=== PATIENT | female | born 1955 | race Caucasian/White ===

== ENCOUNTER 2018-10-12 08:00 | Outpatient (RCR) | payer BC, SELFPAY | END 2018-10-12 08:05 | disposition home or self-care (01) | LOC: PT 08:00 | PROVIDERS: Visit Provider Nurse Practitioner Family | DX: M54.5 Low back pain (principal) | CPT/HCPCS: 97010; 97012; 97014; 97110; 97163; G0283 ==

== ENCOUNTER → 2019-06-15 09:20 | Outpatient (CLI) | payer BC, SELFPAY ==
--- NOTE | 2019-06-15 09:22 | MR_ITS ---
PROCEDURE: MR HEAD/BRAIN WO CON CLINICAL INDICATION: BENIGN NEOPLASM OF BRAIN History of non malignant breast tumor, headache with dizziness COMPARISON: No exams were available for comparison TECHNIQUE: Routine multiplanar multi echo sequences are performed without gadolinium enhancement. FINDINGS: This report is delayed waiting on old films/reports for comparison. The old images are apparently not retrievable. An addendum can be added if the old exam is made available for comparison. There is a extradural mass in the posterior fossa on the left along the posterior aspect of the tentorium. This measures up to 1.7 cm AP and 2.6 cm transverse and 2.2 cm cephalad caudad. This is isointense peripherally on T1 and T2 and hypointense centrally on T1 and T2. The hypointensity is more prominent centrally on the T2 weighted images. This also shows restricted diffusion. These findings are consistent with a meningioma. There is some mild mass effect upon the left cerebellar hemisphere anteriorly foot no underlying cerebellar edema. No midline shift. No midline shift intracranial hemorrhage or hydrocephalus. The cerebellopontine angles have an unremarkable appearance as does the midbrain and brainstem. There is a partial empty sella as a normal variant. The optic chiasm, corpus callosum, and craniocervical junction have an unremarkable appearance. No mastoid effusion or sinus air-fluid level. IMPRESSION: 1. 2.6 x 1.7 x 2.2 cm left dural based mass along the petrous bone posteriorly as described above consistent with a meningioma with mild mass effect upon the cerebellar hemisphere on the left but no midline shift or edema. Old studies not available at the time of this reading. 2. Otherwise negative MRI of the brain without contrast. Dictated by: Adan Villegas MD 06/22/2019 05:26 Electronically signed by Adan Villegas MD in [place] 06/22/2019 05:26
== END ==
PROVIDERS: Visit Provider Nurse Practitioner Family
DX: D33.0 Benign neoplasm of brain, supratentorial (principal)
CPT/HCPCS: 70551

== ENCOUNTER → 2019-08-17 07:39 | Outpatient (CLI) | payer BC, SELFPAY ==
--- NOTE | 2019-08-17 07:47 | MM_ITS ---
PROCEDURE: MM DIG SCREENING MAMM BI W/CAD CLINICAL INDICATION: SCREENING The available patient history is somewhat confusing but apparently there is a history of breast cancer bilaterally with previous lumpectomy right breast and previous radiation therapy of the left breast and possibly previous chemotherapy as well. COMPARISON: [facility] DIG MAMM-SCREEN TROY from 10/13/2013 [facility] DIG MAMM-SCREEN TROY from 03/06/2015 MM MOBILE MAMMO DIGITAL SCREEN W CAD TROY from 06/05/2017 poor quality outside films TECHNIQUE: Standard CC and MLO images and 3D Tomosynthesis was obtained. R2 CAD reviewed. FINDINGS: Mild to moderate postlumpectomy change is again seen right breast. Prominent dystrophic calcifications are again seen right breast there are few scattered benign-appearing microcalcifications in each breast as well. There is no new or suspicious lesion in either breast and no suspicious microcalcifications. IMPRESSION: Stable exam with no suspicious lesions seen BI-RAD Category: 2 Benign Finding(s) FOLLOW-UP: 1YR 1 Year Follow-up (A letter has been sent to the patient regarding results of the study.) Dictated by: Dr. Moses Ferrell MD 08/24/2019 18:[address] Moses Ferrell MD in [place] 08/24/2019 18:08
== END ==
PROVIDERS: PCP Physician Assistant; Visit Provider Physician Assistant
DX: Z12.31 Encounter for screening mammogram for malignant neoplasm of breast (principal)
CPT/HCPCS: 77063; 77067

== ENCOUNTER → 2019-08-18 07:53 | Outpatient (CLI) | payer BC, SELFPAY | PROVIDERS: PCP Nurse Practitioner; Visit Provider Specialist | DX: G47.33 Obstructive sleep apnea (adult) (pediatric) (principal) | CPT/HCPCS: G0399 ==

== ENCOUNTER → 2019-11-16 10:51 | Outpatient (CLI) | payer BC, SELFPAY ==
[2019-11-16 11:27] LABS: Basophils # 0.1 K/mm3 (0-0.2); Basophils % 0.8 % (0.1-2.0); Eosinophils # 0.3 K/mm3 (0.0-0.4); Eosinophils % 2.2 % (0.1-12.0); Hematocrit 41.1 % (37.0-47.0); Hemoglobin 13.2 g/dL (12.2-16.2); Lymphocytes # 3.2 K/mm3 (0.7-4.5); Lymphocytes % 24.6 % (10-50); Mean Corpuscular HGB Conc 32.2 g/dL (31.8-35.4); Mean Corpuscular Hemoglobin 28.7 pg (27.0-31.2); Mean Corpuscular Volume 89.2 fl (81-99); Mean Platelet Volume 9.5 fl (7.4-10.4); Monocytes # 0.8 K/mm3 (0.1-1.0); Monocytes % 5.8 % (1.7-9.3); Neutrophils # 8.7 K/mm3 (1.8-7.8); Neutrophils % 66.6 % (37.0-80.0); Platelet Count 417 K/mm3 (142-424); Red Cell Distribution Width 13.6 % (11.5-17.5); White Blood Count 13.1 K/mm3 (4.8-10.8)
[2019-11-16 12:25] LABS: Potassium 3.9 mmoL/L (3.5-5.1)
[2019-11-16 12:26] LABS: Alanine Aminotransferase 19 U/L (12-78); Albumin Level 4.2 g/dl (3.5-5.0); Albumin/Globulin Ratio 1.5 (1.1-1.8); Alkaline Phosphatase 70 U/L (38-126); Anion Gap 9.9 mEq/L (5-15); Aspartate Amino Transferase 20 U/L (14-36); Bilirubin,Total 0.2 mg/dl (0.2-1.3); Blood Urea Nitrogen 14 mg/dl (7-17); Calcium 9.5 mg/dl (8.4-10.2); Carbon Dioxide 28 mmol/L (22.0-30.0); Chloride 102 mmol/L (98-107); Chol/HDL Ratio 2.3 (1-3.5); Cholesterol 99 mg/dl (140-200); Estimated Glomerular Filt Rate 63 ml/min (>60); GFR (African American) 77 ML/MIN (>60); Globulin 2.8 g/dL (1.3-3.2); Glucose 114 mg/dl (74-100); HDL Cholesterol 44 mg/dl (40-60); Sodium 136 mmol/L (136-145); Triglycerides 86 mg/dl (30-150); VLDL Cholesterol 17 mg/dL (0-40)
[2019-11-16 12:37] LABS: Direct LDL Cholesterol 57.84 mg/dL (100-129)
[2019-11-17 16:15] LABS: H. pylori Breath Test Negative (Negative)
== END ==
PROVIDERS: Visit Provider Internal Medicine Adolescent Medicine
DX: I10 Essential (primary) hypertension (principal); K21.0 Gastro-esophageal reflux disease with esophagitis
CPT/HCPCS: 36415; 80053; 80061; 83013; 83036; 85025

== ENCOUNTER → 2019-12-08 06:11 | Outpatient (CLI) | payer BC, SELFPAY ==
--- NOTE | 2019-12-08 06:12 | CA_ITS ---
APPROVED REPORT Exam: Pharmacologic Technologist: Kimberly Salinas, Ht: 5 ft 4 in Wt: 206 lbs BSA: 1.98 m2 Indications: CP/SOA Medical History Medical History: HTN, Hyperlipidemia Medications: Lisinopril,,,,, Aspirin,,,,, Metoprolol,,,,, Buspirone,,,,, Albuterol,,,,, Famotidine,,,,, DicyCLOMINE,,,,, Meclizine,,,,, ToprIMATE,,,,, Fluoxetine,,,,, AtorvaASTATIN,,,,, Aripiprazole,,,,, Cardiac Risk Factors: HTN, Hyperlipidemia, FHX of CAD, Smoking Stress Test Details Test: LEXISCAN Reason for pharmacologic stress test: physical limitation. HR Resting HR: 59 bpm Max Heart Rate (APMHR): 158 bpm Max HR Achieved: 94 bpm Target HR (85% APMHR): 134 bpm % of APMHR: 59 BP Resting BP: 122/46 mmHg Max BP: 154/55 mmHg ECG Clinical Exercise duration: 04:00 min Highest Stage Achieved: Exercise capacity: 1.0 METs Stress ECG Conclusion patient denied any symptoms during peak infusion no arrhythmias noted less than 1.5mm ST depression images to follow Test Summary . Myoview Injected . . . Stop exercise at 04:00 . . . . . Electronically signed by : Joaquin Gee, 12/08/2019 11:19:34
--- NOTE | 2019-12-08 06:12 | NM_ITS ---
APPROVED REPORT Exam: Nuclear Stress Test Indication: chest pain..short of breath..fatigue Patient Location: Outpatient Stress Tech: Kimberly Brad [place] Tech:Elizabeth North CARLA RT(R)(N) Ht: 5 ft 4 in Wt: 206 lbs Bra Size: 40b HR: 57 bpm BP: 122/46 mmHg BSA: 1.98 m2 BMI: 35.3 History: chest pain..short of breath..fatigue Procedure: Patient received a 0.4 mg of intravenous Lexiscan, resting heart rate 57 bpm, resting blood pressure 122/46 mmHg, with Lexiscan maximum heart rate achived was 93 bpm which is Less than 85 % of the maximum predicted heart rate and blood pressure was 154/55 mmHg. With Lexiscan, patient denied any complaint of chest pain. Electrocardiogram Resting electrocardiogram showed sinus rhythm, with Lexiscan there is less than 1.[address] segment depression noted from the baseline EKG. The EKG portion of the Lexiscan Myoview is nondiagnostic. Cardiac Stress and Resting SPECT Images: Cardiac Stress and Resting SPECT images were obtained using technetium 99m Myoview 30.7 mCi stress and 10.89 mCi at rest. Gated SPECT for the analysis of segmental wall motion and calculation of the ejection fraction also done. Cardiac stress and resting SPECT images show a fixed defect involving the apex and anteroseptal wall with normal contractility gated SPECT is likely secondary to soft tissue attenuation, no reversible ischemia seen. Computer derived ejection fraction is over 65% with no regional wall motion abnormality, right ventricle is normal size and contractility. Conclusion: 1. The EKG portion of the Lexiscan Myoview is nondiagnostic. 2. No scintigraphic evidence of reversible ischemia seen, computer derived ejection fraction is over 65% with no regional wall motion abnormality, right ventricle is normal size and contractility. 3. Likely normal Lexiscan Myoview study. Electronically signed by : Joaquin Gee, 12/08/2019 11:52:54
--- NOTE | 2019-12-08 09:12 | HMH.ITSHM ---
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 [] metoprolol atorvastatin dicyclomine lisinopril asa topiramate
== END ==
PROVIDERS: PCP Internal Medicine Adolescent Medicine; Visit Provider Urology
DX: R07.9 Chest pain, unspecified (principal); R06.00 Dyspnea, unspecified; R10.10 Upper abdominal pain, unspecified; F17.200 Nicotine dependence, unspecified, uncomplicated; Z82.49 Family history of ischemic heart disease and other diseases of the circulatory system
CPT/HCPCS: 78452; 93017; A9502; J2785

== ENCOUNTER → 2019-12-28 07:38 | Outpatient (CLI) | payer BC, SELFPAY ==
--- NOTE | 2019-12-28 07:43 | CT_ITS ---
PROCEDURE: CT LUNG SCREENING CLINICAL INDICATION: H/O TOBACCO DEPENDENCE Sixty pack-year smoking history COMPARISON: ABDPELW CT abdomen pelvis w con from 06/17/2018 TECHNIQUE: The exam was performed on a GE Light Speed [address] scanner using 2.90 mGy CTDI. A low dose helical CT CHEST was performed on a multi-detector scanner. All CT scans at the facility use one or more dose reduction, viz: automated exposure control, ma/kV adjustment per patient size (including targeted exams where dose is matched to indication, i.e. head), or iterative reconstruction technique. The LDCT was performed in a facility that meets the criteria for the screening program. Data regarding this exam was submitted to ACR which is an approved registry. The order for this exam indicates that it came as a result of a lung cancer screening counseling shard decision-making visit that included all the elements required of such a visit including smoking cessation. The radiologist interpreting this exam meets the CMS criteria for the LDCT lung cancer screening program. The exam is reported using the Lung-RADS classification scale and reported to the ACR registry. NOTE: This study was performed for the specific purposes of lung cancer screening and is not an alternative to diagnostic chest CT. RADIATION DOSE: CTDI vol(CT dose Index-volume) = 2.90mG DLP (Dose Length Product) = 100.55 mGcm FINDINGS: Changes of COPD with scattered areas of scarring. There are numerous subsolid, solid, and ground-glass opacities. The larger of the sub solid nodules in the superior segment right lower lobe at 12 mm image 41, 8 mm sub solid nodule right upper lobe anteriorly image 17 solid 6 mm nodule right upper lobe image 24. 8 mm solid appearing nodule left lower lobe image 39. 4 mm noncalcified nodule in the right middle lobe. There are other smaller nodules as well. Atelectatic or fibrotic changes in the lingula. Pleural calcification noted in the left lower lung zone anteriorly. Calcified nodule right upper lobe. OTHER FINDINGS: Coronary artery calcifications there is calcification in parenchymal distortion in both breasts. IMPRESSION: Lung rads category 4 suspicious. Numerous noncalcified pulmonary nodular opacities and ground-glass densities. These could be related to infection/inflammation or neoplasm. Metastatic disease is a consideration in this patient with history of breast cancer. Suggest 4-[address] follow-up without and with contrast Dictated by: Adan Villegas MD 01/14/2020 08:22 Electronically signed by Adan Villegas MD in [place] 01/14/2020 08:22
== END ==
PROVIDERS: PCP Internal Medicine Adolescent Medicine; Visit Provider Internal Medicine Adolescent Medicine
DX: Z87.891 Personal history of nicotine dependence (principal); Z12.2 Encounter for screening for malignant neoplasm of respiratory organs

== ENCOUNTER → 2020-01-30 13:23 | Outpatient (CLI) | payer BC, SELFPAY ==
[2020-01-30 14:40] LABS: Blood Urea Nitrogen 18 mg/dl (7-17); Estimated Glomerular Filt Rate 50 ml/min (>60); GFR (African American) 61 ML/MIN (>60)
== END ==
PROVIDERS: Visit Provider Internal Medicine Adolescent Medicine
DX: R91.8 Other nonspecific abnormal finding of lung field (principal)
CPT/HCPCS: 36415; 82565; 84520

== ENCOUNTER → 2020-02-16 09:33 | Outpatient (CLI) | payer BC, OTHER, SELFPAY ==
--- NOTE | 2020-02-16 09:36 | CT_ITS ---
PROCEDURE: CT CHEST WO CON CLINICAL INDICATION: ABNORMAL CHEST CT Follow-up abnormal chest CT, tobacco use, tobacco dependence, 60 pack-year smoking history COMPARISON: CT ABDPELW CT abdomen pelvis w con from 06/17/2018 MG MM DIG SCREENING MAMM BI W/CAD from 08/17/[address] LUNG SCREENING from 12/28/2019 TECHNIQUE: Axial images obtained with sagittal and coronal reformats. All CT scans at the facility use one or more dose reduction, viz: automated exposure control, ma/kV adjustment per patient size (including targeted exams where dose is matched to indication, i.e. head), or iterative reconstruction technique. FINDINGS: HEART AND MEDIASTINAL STRUCTURES: No mediastinal or hilar mass or adenopathy. Coronary artery calcifications are. LUNGS AND PLEURAL SPACES: COPD with centrilobular emphysema. Numerous noncalcified pulmonary nodular opacities are once again noted many of which are solid appearing or ground-glass attenuation. At least 2 ground-glass opacities in the right upper lobe have shown some improvement. The other nodular opacities are unchanged. There are 3 small areas of cavitation to in the right upper lobe and 1 in the left upper lobe which are unchanged. There is some scarring in the left upper lobe/lingula unchanged. No new nodules are identified. The largest nodular opacities in the right lower lobe posteriorly at approximately 12 mm and is not significantly changed. No effusions. BONY STRUCTURES: No acute bony abnormalities apparent. UPPER ABDOMEN: Unremarkable. ADDITIONAL FINDINGS: Surgical clips are present in the right breast. There has been prior right breast surgery. Dystrophic calcification is present bilaterally. There is asymmetric increased density along the chest wall on the left with some dense calcification. Suggest mammographic correlation. IMPRESSION: Continued indeterminate multiple pulmonary nodular opacities most of which are unchanged. Two ground-glass opacities noted in the right apex have improved. Metastatic disease is not excluded. Three month follow-up recommended. Increased soft tissue density involving the left breast along the left chest wall anteriorly. Suggest mammographic and sonographic correlation Dictated by: Adan Villegas MD 02/17/2020 08:08 Adan Villegas MD in [place] 02/17/2020 08:08
[2020-02-16 10:15] LABS: Blood Urea Nitrogen 18 mg/dl (7-17); Estimated Glomerular Filt Rate 21 ml/min (>60); GFR (African American) 26 ML/MIN (>60)
== END ==
PROVIDERS: PCP Internal Medicine Adolescent Medicine; Visit Provider Internal Medicine Adolescent Medicine
DX: R93.89 Abnormal findings on diagnostic imaging of other specified body structures (principal)
CPT/HCPCS: 36415; 71250; 82565; 84520

== ENCOUNTER 2020-06-04 10:01 | Outpatient (RCR) | payer OTHER, SELFPAY ==
--- NOTE | 2020-06-04 10:48 | HMH.PTOPEV ---
PT Outpatient Evaluation Rehab PT Outpatient Evaluation Start: 06/04/20 10:34 Freq: Status: Active Protocol: Document 06/04/20 10:34 NAHUM (Rec: 06/04/20 10:47 NAHUM [id number]) Electronically Signed By Evens Martin PT 06/04/20 10:34 Outpatient Therapy Subjective History Subjective History This is the initial Physical Therapy evaluation for Christa Avila. Pt is a 64 y/o female referred to PT for c/o RLE pain and radicular symptoms. Pt reports ~ 1 month ago she slipped on wet grass going down hill and reports she twisted and pulled a muscle in her R buttocks. Pt reports that once that healed she began having pain and paresthesia into RLE and foot. Pt reports the last 3 toes on R foot can go numb . Chief Complaint Pain,Paresthesia Symptom Type Ache,Sharp,Burning,Numbness, Tingling,Shooting Symptoms Relieved By Nothing Symptoms Aggravated By Standing,Bending/Stooping, Physical Activity,Walking Prior Functional Limitations None Current Functional Limitations Housework,Sleeping,Recreation Activity,Walking,Bending/ Stooping Symptom Description Constant but Variable Level of pain today (0-10) 2 Pain scale - at its best (0-10) 1 Pain scale - at its worst (0-10) 6 Lumbopelvic Eval Palapation tenderness right thoracic spinal tenderness No lumbar spinal tenderness Yes paraspinal tenderness Yes buttock tenderness Yes Range of Motion Lumbar Spine Active Flexion Range of 25 w/ pain in leg Motion (degrees) Lumbar Spine Active Extension Range of 10 w/ pain in back Motion (degrees) Left Lumbar Spine Lateral Flexion Active 15 pain in RLE Range of Motion (degrees) Right Lumbar Spine Lateral Flexion 30 Active Range of Motion (degrees) DTR Rt Patellar 0 Lt Patellar 0 Special Tests Lumbar Spine Screen Positive Forward Bending Test- Standing Positive Right Sciatic Nerve Tension Test Negative Right Unilateral Straight Leg Raise (Lasegue) Positive Right Test Outpatient Therapy Assessment Impairments Problems/Impairmments Palpation Tenderness,Impaired Range of Motion,Impaired
== END 2020-06-04 10:05 | disposition home or self-care (01) ==
LOC: PT 10:01
PROVIDERS: PCP Internal Medicine Adolescent Medicine; Visit Provider Internal Medicine Adolescent Medicine
DX: M54.31 Sciatica, right side (principal)
CPT/HCPCS: 97163

== ENCOUNTER → 2020-06-14 11:21 | Outpatient (CLI) | payer OTHER, SELFPAY ==
[2020-06-14] VITALS (9 sets, daily range): BP systolic 106–140; BP diastolic 42–87; PULSE 61–84; RESP 17–20; TEMP 36.9–37.4; O2SAT 98–100
--- NOTE | 2020-06-14 12:59 | PC.NURSE ---
PT GIVEN BLANKET, OFFERED REFRESHMENT AND TV, PT DENIED. CALL [facility] AT BEDSIDE. NO NEEDS AT THIS TIME.
--- NOTE | 2020-06-14 13:27 | PC.NURSE ---
INFUSION COMPLETE, NO S/S OF REACTION NOTED.
--- NOTE | 2020-06-14 14:26 | PC.NURSE ---
PT DISCHARGE, NO REACTION NOTED.
== END ==
PROVIDERS: PCP Internal Medicine Adolescent Medicine; Visit Provider Internal Medicine Adolescent Medicine
DX: U07.1 COVID-19 (principal)
CPT/HCPCS: 96365

== ENCOUNTER → 2020-10-19 10:34 | Outpatient (CLI) | payer OTHER, SELFPAY ==
--- NOTE | 2020-10-19 10:37 | MR_ITS ---
PROCEDURE: MR LUMBAR SPINE WO CON CLINICAL INDICATION: ACUTE RIGHT SIDED BACK PAIN Prior hx breast cancer xtimes. Last time was in 2006. Rt sided buttock and low back pain. Rt leg pain, numbness, and tingling. Symptoms x3wks. COMPARISON: CT ABDPELW CT abdomen pelvis w con from 06/17/2018 MR MR HEAD/BRAIN WO CON from 06/15/2019 TECHNIQUE: Standard multiplanar multiecho sequences are performed without contrast. 3-D MIP and myelographic images are also rendered and reviewed FINDINGS: There is normal alignment. The spinal cord ends at the L1-L2 level. T11-T12: Mild degenerative disc disease. T12-L1: Mild degenerative disc disease. L1-L2: Small anterior osteophytes. Mild degenerative disc disease. L2-L3: Unremarkable. L3-L4: Minimal left foraminal narrowing from mild bulging disc. IMPRESSION: 1. Multilevel lower thoracic and lumbar spondylosis. Please see above for detailed description at each level. 2. L4-5: Small broad-based central disc protrusion with a small right paracentral disc herniation best seen on the sagittal T2 weighted images. This is causing some impingement upon the right L5 nerve root. Mild facet hypertrophic changes are also present at this level. 3. L5-S1: Degenerative disc disease with minimal central disc protrusion slightly eccentric toward the left abutting the left S1 nerve root. There is mild bilateral foraminal narrowing. A small annular fissure is noted in the right paracentral region of the disc. Dictated by: Adan Villegas MD 10/22/2020 11:27 Adan Villegas MD in [place] 10/22/2020 11:27
== END ==
PROVIDERS: PCP Internal Medicine Adolescent Medicine; Visit Provider Internal Medicine Adolescent Medicine
DX: M54.41 Lumbago with sciatica, right side (principal)
CPT/HCPCS: 72148; 76376

== ENCOUNTER 2020-11-01 11:00 | Outpatient (RCR) | payer OTHER, SELFPAY ==
--- NOTE | 2020-10-22 09:19 | HMH.PTOPEV ---
PT Outpatient Evaluation Rehab PT Outpatient Evaluation Start: 10/22/20 09:09 Freq: Status: Active Protocol: Document 10/22/20 09:09 JANICE (Rec: 10/22/20 09:19 JANICE [id number]) Electronically Signed By Isael Pugh, PT 10/22/20 09:09 Outpatient Therapy Subjective History Subjective History Pt reports h/o chronic LBP for ~10 yrs, reports exacerbation ~ 3weeks ago caused by ' rolling over in bed'. Pt reports R sided LBP with radicular s/s down R LE to foot, w/weakness, burning, and N&T reported. Chief Complaint Pain,Stiff,Paresthesia, Weakness Symptom Type Ache,Sharp,Dull,Stabbing, Burning,Numbness,Tingling, Shooting Symptoms Relieved By Rest/Positioning,Heat Symptoms Aggravated By Standing,Physical Activity, Walking,Lifting Prior Functional Limitations Lifting,Housework,Standing, Walking Current Functional Limitations Lifting,Housework,Standing, Walking Symptom Description Constant but Variable Level of pain today (0-10) 4 Pain scale - at its best (0-10) 4 Pain scale - at its worst (0-10) 9 Lumbopelvic Eval Posture Thoracic Spine Posture Standing Position Flattened Lumbar Spine Posture Standing Position Flattened Assistive device Assistive Devices None / NA Gait Observation General Gait Pattern Observation Antalgic Gait Palapation tenderness bilateral lumbar spinal tenderness Yes: 3/4 paraspinal tenderness Yes: 3/4 buttock tenderness Yes: 3/4 Lumbar/Sacral Palpation Findings Tenderness,Trigger Point, Muscle Guarding Lumbar/Sacral Palpation Overall Comment 3/4 Accessory Movement L-spine Vertebrae Accessory Movements Central P/A [place] that Elicit Symptoms L2 bilateral L3 bilateral L4 bilateral L5 bilateral Range of Motion Lumbar Spine Active Flexion Range of 0-45 Motion (degrees) Lumbar Spine Active Extension Range of 0 Motion (degrees) Left Lumbar Spine Lateral Flexion Active 0-30 Range of Motion (degrees) Right Lumbar Spine Lateral Flexion 0-20 Active Range of Motion (degrees) Lumbar Spine ROM Limitations Pain Manual Muscle Test Left Knee Extension Strength Grade 5 Normal Knee Flexion Strength Grade 5 Normal Hip Flexion Strength Grade 5
== END 2021-01-15 14:39 | disposition home or self-care (01) ==
LOC: PT 11:00
PROVIDERS: PCP Internal Medicine Adolescent Medicine; Visit Provider Internal Medicine Adolescent Medicine
DX: M54.41 Lumbago with sciatica, right side (principal); M54.31 Sciatica, right side
CPT/HCPCS: 97010; 97012; 97014; 97110; 97163; G0283

== ENCOUNTER → 2021-02-27 13:42 | Outpatient (CLI) | payer OTHER, SELFPAY ==
[2021-02-27 14:56] LABS: Chloride 107 mmol/L (98-107); Potassium 4.3 mmoL/L (3.5-5.1); Sodium 139 mmol/L (136-145)
[2021-02-27 14:58] LABS: Alanine Aminotransferase 15 U/L (12-78); Alkaline Phosphatase 59 U/L (38-126); Aspartate Amino Transferase 20 U/L (14-36); Bilirubin,Total 0.3 mg/dl (0.2-1.3); Blood Urea Nitrogen 14 mg/dl (7-17); Estimated Glomerular Filt Rate 50 ml/min (>60); GFR (African American) 61 ML/MIN (>60)
[2021-02-27 14:59] LABS: Albumin Level 3.6 g/dl (3.5-5.0); Albumin/Globulin Ratio 1.4 (1.1-1.8); Anion Gap 14.3 mEq/L (5-15); Calcium 8.9 mg/dl (8.4-10.2); Carbon Dioxide 22 mmol/L (22.0-30.0); Cholesterol 108 mg/dl (140-200); Globulin 2.6 g/dL (1.3-3.2); Glucose 114 mg/dl (74-100); HDL Cholesterol 36 mg/dl (40-60); Total Protein,Serum 6.2 g/dl (6.3-8.2); Triglycerides 130 mg/dl (30-150); VLDL Cholesterol 26 mg/dL (0-40)
[2021-02-27 15:10] LABS: Direct LDL Cholesterol 53.18 mg/dL (100-129)
== END ==
PROVIDERS: Visit Provider Internal Medicine Adolescent Medicine
DX: Z20.822 Contact with and (suspected) exposure to COVID-19 (principal); I10 Essential (primary) hypertension; E78.5 Hyperlipidemia, unspecified
CPT/HCPCS: 36415; 80053; 80061; U0003

== ENCOUNTER 2022-02-22 18:56 | Emergency (ER) | payer OTHER, SELFPAY ==
[2022-02-22 18:57] VITALS: BP 151/54; PULSE 95; RESP 22; TEMP 36.6; O2SAT 89; BMI 35.4
[2022-02-22 19:07] VITALS: BMI 35.4
--- NOTE | 2022-02-22 19:08 | XR_ITS ---
PROCEDURE INFORMATION: Exam: XR Chest Exam date and time: 02/22/2022 7:17 PM Age: 66 years old Clinical indication: Shortness of breath; Prior surgery; Surgery date: 6+ months; Surgery type: Breast cancer surgery lumpectomys bilateral; Additional info: SOA TECHNIQUE: Imaging protocol: Radiologic exam of the chest. Views: 2 views. COMPARISON: CT CHEST WO CON 02/16/2020 10:45 AM FINDINGS: Lungs: No consolidation. Pleural spaces: No pneumothorax. Heart/Mediastinum: No cardiomegaly. Bones/joints: Degenerative changes of the shoulders. IMPRESSION: No acute findings.
--- NOTE | 2022-02-22 19:08 | ECG_ITS ---
APPROVED REPORT Exam: Resting ECG HR:89 bpm ECG Measurements Heart Rate 89 AXES ID 142 P 78 QRSd 84 QRS 73 QT 358 T 75 QTc 405 Conclusion SINUS RHYTHM NORMAL ECG UNCONFIRMED REPORT Electronically signed by : Moustapha Hendrix MD 02/24/2022 21:29:48
[2022-02-22 19:24] LABS: ABG Base Excess 2.7 mmol/L (-2.4-2.3); ABG HCO3 26.5 mmhg (22.0-26.0); ABG Oxygen Saturation 97 % (90-100); ABG PCO2 38.1 mmhg (35.0-45.0); ABG PH 7.46 mmol/L (7.35-7.45); ABG PO2 85.1 mmhg (80-100); ABG TCO2 27.7 mmhg (23-27)
[2022-02-22 19:25] LABS: Allen's Test y; Oxygen 2 %; Source rr
[2022-02-22 19:26] LABS: Coronavirus 19, PCR Not Detected (NotDetected); Influenza A, PCR Not Detected (NotDetected); Influenza B, PCR Not Detected (NotDetected)
[2022-02-22 20:00] VITALS: BP 114/49; PULSE 88; O2SAT 96
[2022-02-22 20:14] LABS: Basophils # 0.2 K/mm3 (0-0.2); Basophils % 1.4 % (0.1-2.0); Eosinophils # 0.4 K/mm3 (0.0-0.4); Eosinophils % 3.2 % (0.1-12.0); Hemoglobin 13.2 g/dL (12.2-16.2); Lymphocytes # 2.3 K/mm3 (0.7-4.5); Lymphocytes % 18.5 % (10-50); Mean Corpuscular HGB Conc 31.5 g/dL (31.8-35.4); Mean Corpuscular Hemoglobin 27.3 pg (27.0-31.2); Mean Corpuscular Volume 86.5 fl (81-99); Mean Platelet Volume 9.3 fl (7.4-10.4); Monocytes % 7.6 % (1.7-9.3); Neutrophils # 8.8 K/mm3 (1.8-7.8); Neutrophils % 69.3 % (37.0-80.0); Platelet Count 420 K/mm3 (142-424); Red Blood Count 4.85 M/mm3 (4.20-5.40); Red Cell Distribution Width 14.3 % (11.5-17.5); White Blood Count 12.6 K/mm3 (4.8-10.8)
--- NOTE | 2022-02-22 20:18 | HMH.EDSOB ---
ED Disposition Clinical Impression: Acute exacerbation of chronic obstructive airways disease, Tobacco dependence syndrome, Pulmonary nodule Disposition: Home, Self-Care Condition on Discharge: Good Instructions: DI for Chronic Obstructive Pulmonary Disease Additional Instructions: see pcp for follow up and use meds as directed Prescriptions: Benzonatate [Benzonatate 100mg cap] 100 mg PO TID #21 cap Transmission Status: Pending to [id number] levoFLOXacin [Levaquin 500mg tab] 500 mg PO DAILY #7 tab Transmission Status: Pending to [id number] predniSONE [Prednisone 20mg Tab] 20 mg PO BID #10 tab Transmission Status: Pending to [id number] Referrals: John Hubbard MD [Primary Care Provider] - Chayito Restrepo MD [Physician] - - Critical Care Critical Care Time: No Attestation: On 02/22/22, the high probability of a clinically significant, sudden or life threatening deterioration of the following system(s) required my full and direct attention, intervention and personal management. The time I documented below is in addition to time spent performing reported procedures but includes the following listed in this critical care notation. Medical Decision Making - Medical Records Medical records reviewed: Yes: I reviewed the patient's medical records. - Raffy Inquiry Pt receiving controlled substance: No Vital Signs: 02/22/22 18:57 02/22/22 20:00 02/22/22 20:51 Temperature 97.9 F Temperature Source Oral Pulse Rate 88 91 H Pulse Rate [Right] 95 H Respiratory Rate 22 Blood Pressure 114/49 L 117/59 L Blood Pressure [Right Arm] 151/54 H Blood Pressure Mean [Right Arm] 86 02 Sat by Pulse Oximetry 89 L 96 96 Oxygen Delivery Method Room Air Room Air Room Air 02/22/22 22:02 Temperature Temperature Source Pulse Rate 83 Pulse Rate [Right] Respiratory Rate Blood Pressure Blood Pressure [Right Arm] Blood Pressure Mean [Right Arm] 02 Sat by Pulse Oximetry Oxygen Delivery Method - Lab Data Lab results reviewed: Yes: I reviewed the patient's lab results. Lab Results 02/22/22 19:01: SARS-CoV-2 (PCR) Not detected, Influenza A Untype (PCR) Not detected, Influenza Type B (PCR) Not detected 02/22/22 19:08: Specimen Source rr, O2 % 2, ABG pH 7.46 H, ABG pCO2 38.1, ABG pO2 85.1, ABG HCO3 26.5 H, ABG Total CO2 27.7 H, ABG O2 Saturation 97, ABG Base Excess 2.7 H, Adan Test y 02/22/22 19:55: WBC 12.6 H, RBC 4.85, Hgb 13.2, Hct 42.0, MCV 86.5, MCH 27.3, MCHC 31.5 L, RDW 14.3, Plt Count 420, MPV 9.3, Neut % (Auto) 69.3, Lymph % (Auto) 18.5, Stokes % (Auto) 7.6, Eos % (Auto) 3.2, Baso % (Auto) 1.4, Neut # (Auto) 8.8 H, Lymph # (Auto) 2.3, Stokes # (Auto) 1.0, Eos # (Auto) 0.4, Baso # (Auto) 0.2, ESR 21 02/22/22 19:55: Sodium 136, Potassium 3.8, Chloride 98, Carbon Dioxide 32 H, Anion Gap 9.8, BUN 22 H, Creatinine 1.10 H, Estimated Creat Clear 74, Estimated GFR 50 L, Est GFR ( Amer) 61, Glucose 159 H, Calcium 9.5, Total Bilirubin 0.3, AST 28, ALT 30, Alkaline Phosphatase 104, Troponin I < 0.01, C-Reactive Protein 9.7 H, Total Protein 7.2, Albumin 4.1, Globulin 3.1, Albumin/Globulin Ratio 1.3, Procalcitonin 0.069 02/22/22 19:55: Lactate 1.4 02/22/22 19:55: NT-Pro-B Natriuret Pep 119 Result diagrams: 02/22/22 19:55 02/22/22 19:55 Orders (Tests/Meds): ED MEDICATIONS Generic Name Dose Route Start Last Admin Trade Name Freq PRN Reason Stop Dose Admin Sodium Chloride 1,000 mls @ 999 mls/hr 02/22/22 19:15 02/22/22 19:15 Sod Chlor 0.9% 1000ml Bag IV 02/22/22 20:15 999 mls/hr .Q1H1M NANCY Administration Discontinued Medications Generic Name Dose Route Start Last Admin Trade Name Freq PRN Reason Stop Dose Admin Albuterol/Ipratropium 3 ml 02/22/22 21:45 02/22/22 22:01 Ipratropium/Albuterol 3 Ml Neb IH 02/22/22 21:46 3 ml ONCE ONE Administration Dexamethasone Sodium Phosphate 10 mg 02/22/22 19:10 02/22/22 19:10 Dexamethasone
[2022-02-22 20:20] LABS: Alanine Aminotransferase 30 U/L (12-78); Albumin Level 4.1 g/dl (3.5-5.0); Albumin/Globulin Ratio 1.3 (1.1-1.8); Alkaline Phosphatase 104 U/L (38-126); Anion Gap 9.8 mEq/L (5-15); Aspartate Amino Transferase 28 U/L (14-36); Bilirubin,Total 0.3 mg/dl (0.2-1.3); Blood Urea Nitrogen 22 mg/dl (7-17); Calcium 9.5 mg/dl (8.4-10.2); Carbon Dioxide 32 mmol/L (22.0-30.0); Chloride 98 mmol/L (98-107); Creatinine Clearance Estimated 74 mL/min (50-200); Estimated Glomerular Filt Rate 50 ml/min (>60); GFR (African American) 61 ML/MIN (>60); Globulin 3.1 g/dL (1.3-3.2); Glucose 159 mg/dl (74-100); Lactic Acid 1.4 mmol/L (0.7-2.1); Potassium 3.8 mmoL/L (3.5-5.1); Sodium 136 mmol/L (136-145); Total Protein,Serum 7.2 g/dl (6.3-8.2)
--- NOTE | 2022-02-22 20:25 | CT_ITS ---
PROCEDURE INFORMATION: Exam: CTA Chest With Contrast Exam date and time: 02/22/2022 8:39 PM Age: 66 years old Clinical indication: Shortness of breath; Prior surgery; Surgery date: 6+ months; Surgery type: Bilateral breasts lumpectomys; Additional info: SOB TECHNIQUE: Imaging protocol: Computed tomographic angiography of the chest with contrast. 3D rendering (Not supervised by radiologist): MIP and/or 3D reconstructed images were created by the technologist. Radiation optimization: All CT scans at this facility use at least one of these dose optimization techniques: automated exposure control; mA and/or kV adjustment per patient size (includes targeted exams where dose is matched to clinical indication); or iterative reconstruction. Contrast material: ISOVUE 370; Contrast volume: 70 ml; Contrast route: INTRAVENOUS (IV); COMPARISON: CT CHEST WO CON 02/16/2020 10:45 AM FINDINGS: Pulmonary arteries: No acute pulmonary emboli. Aorta: Atherosclerotic disease of the thoracic aorta, without aneurysm or dissection. Lungs: Small focal areas of scarring within the anterior aspects of the upper lobes bilaterally. Mild centrilobular emphysema. 2.0 x 1.1 cm. Irregular noncalcified nodular focus within the central right upper lobe (series 5, image 35), new from comparison study. Scarring within the inferior aspect of the left upper lobe, similar to comparison study. 9 mm irregular noncalcified pulmonary nodule within the posterior right lower lobe (series 5, image 62), similar to comparison study. Mild bilateral upper and lower lobe bronchial wall thickening, compatible with reactive airway disease or bronchitis. Pleural spaces: Unremarkable. No pneumothorax. No pleural effusion. Heart: Unremarkable. No cardiomegaly. No pericardial effusion. Lymph nodes: Unremarkable. No enlarged lymph nodes. Liver: Hepatic calcifications, compatible with prior granulomatous disease. Spleen: Splenic calcifications, compatible with prior granulomatous disease. Bones/joints: Multilevel thoracic spine degenerative disc space narrowing and osteophyte formation. Soft tissues: Calcifications within the breasts bilaterally, likely secondary to prior bilateral lumpectomies, but not definitively characterized on this study. IMPRESSION: 1. No acute pulmonary emboli. 2. 2.0 x 1.1 cm. Irregular noncalcified nodular focus within the central right upper lobe (series 5, image 35), new from comparison study. Finding may be infectious/inflammatory versus carcinoma. Recommend further evaluation with PET-CT and/or tissue sampling. 3. 9 mm irregular noncalcified pulmonary nodule within the posterior right lower lobe (series 5, image 62), similar to comparison study. 4. Mild bilateral upper and lower lobe bronchial wall thickening, compatible with reactive airway disease or bronchitis.
[2022-02-22 20:26] LABS: C-Reactive Protein 9.7 mg/L (0-4)
[2022-02-22 20:37] LABS: Troponin I < 0.01 ng/ml (0.00-0.034)
[2022-02-22 20:40] LABS: Procalcitonin 0.069 ng/mL (0.0-2.0)
[2022-02-22 20:51] VITALS: BP 117/59; PULSE 91; O2SAT 96
[2022-02-22 20:51] LABS: Erythrocyte Sedimentation Rate 21 mm/hr (0-30)
[2022-02-22 20:55] LABS: NT Pro Brain Natriuretic Pep. 119 pg/mL (0-125)
[2022-02-22 22:02] VITALS: PULSE 83
[2022-02-22 23:31] VITALS: BP 115/78; PULSE 84; RESP 18; TEMP 36.6; O2SAT 98
== END 2022-02-22 22:30 | disposition home or self-care (01) ==
PROVIDERS: Emergency Provider Emergency Medicine; PCP Internal Medicine Adolescent Medicine
DX: J44.1 Chronic obstructive pulmonary disease with (acute) exacerbation (principal); F17.210 Nicotine dependence, cigarettes, uncomplicated; R91.1 Solitary pulmonary nodule; Z79.899 Other long term (current) drug therapy; Z88.2 Allergy status to sulfonamides; F32.A Depression, unspecified; K21.9 Gastro-esophageal reflux disease without esophagitis; E78.5 Hyperlipidemia, unspecified; I10 Essential (primary) hypertension; G43.909 Migraine, unspecified, not intractable, without status migrainosus; Z80.9 Family history of malignant neoplasm, unspecified; Z82.49 Family history of ischemic heart disease and other diseases of the circulatory system; Z84.89 Family history of other specified conditions
CPT/HCPCS: 71046; 71275; 80053; 82803; 83605; 83880; 84145; 84484; 85025; 85651; 86140; 87040; 93005; 94640; 96365; 96375; 99284; C9803; Q9967; U0003; U0005

== ENCOUNTER 2022-11-10 16:07 | Emergency (ER) | payer MEDICARE, OTHER, SELFPAY ==
[2022-11-10] VITALS (9 sets, daily range): BP systolic 106–174; BP diastolic 55–78; PULSE 70–81; RESP 14–20; TEMP 36.7–36.8; O2SAT 87–98; BMI 32.5
--- NOTE | 2022-11-10 16:05 | ECG_ITS ---
APPROVED REPORT Exam: Resting ECG HR:84 bpm ECG Measurements Heart Rate 84 AXES LA 147 P 67 QRSd 94 QRS 55 QT 362 T 47 QTc 403 Conclusion SINUS RHYTHM NORMAL ECG UNCONFIRMED REPORT Electronically signed by : Moustapha Hendrix MD 11/10/2022 22:02:03
--- NOTE | 2022-11-10 16:10 | PC.NURSE ---
RANGEL HANCOCK at
--- NOTE | 2022-11-10 16:13 | CT_ITS ---
PROCEDURE INFORMATION: Exam: CTA Chest With Contrast Exam date and time: 11/10/2022 5:21 PM Age: 67 years old Clinical indication: Other: Chest pain; Additional info: Pain, rue discoloration TECHNIQUE: Imaging protocol: Computed tomographic angiography of the chest with contrast. 3D rendering (Not supervised by radiologist): MIP and/or 3D reconstructed images were created by the technologist. Radiation optimization: All CT scans at this facility use at least one of these dose optimization techniques: automated exposure control; mA and/or kV adjustment per patient size (includes targeted exams where dose is matched to clinical indication); or iterative reconstruction. Contrast material: ISOVUE; Contrast volume: 100 ml; Contrast route: INTRAVENOUS (IV); REPORTING DATA: Count of CT and Cardiac NM exams in prior 12 months: This patient has received [address] and 0 known cardiac nuclear medicine studies in the 12 months prior to the current study. COMPARISON: CT ANGIO CHEST PE PROTOCOL 02/22/2022 8:39 PM FINDINGS: Pulmonary arteries: Poorly defined consolidative mass in right perihilar region with at least partial encasement of right segmental and subsegmental pulmonary arteries. Partial right upper lobar atelectatic collapse. Partial volume loss of right lung. Consolidative mass measures 6.9 x 8.3 cm. Poorly defined patchy airspace opacification surrounding consolidative mass in right upper right middle and right lower lobes. Underlying centrilobular emphysematous changes throughout both lungs. Left upper lobar and lingular segment subsegmental atelectasis. Aorta: Mild atherosclerotic calcification of thoracic aorta and coronary arteries. Lungs: Poorly defined consolidative mass in right perihilar region with at least partial encasement of right segmental and subsegmental pulmonary arteries. Partial right upper lobar atelectatic collapse. Partial volume loss of right lung. Consolidative mass measures 6.9 x 8.3 cm. Poorly defined patchy airspace opacification surrounding consolidative mass in right upper right middle and right lower lobes. Underlying centrilobular emphysematous changes throughout both lungs. Left upper lobar and lingular segment subsegmental atelectasis. Pleural spaces: [id number] right pleural effusion. Heart: Tiny pericardial effusion. Lymph nodes: Enlarged mediastinal and perihilar lymph nodes measuring up to 2.3 x 1.8 cm in precarinal station. Bones/joints: Unremarkable. No acute fracture. Soft tissues: Unremarkable. IMPRESSION: 1. No central or segmental pulmonary embolism by CT criteria. 2. Right perihilar consolidative mass with partial right upper lobar atelectatic collapse and volume loss of right lung. Diffuse surrounding airspace opacification likely inflammatory although bronchovascular infiltration of mass not excluded. 3. Mediastinal/perihilar lymphadenopathy. 4. Right pleural effusion. 5. Tiny pericardial effusion. COMMENTS: In the absence of a history or active diagnosis of lung cancer, it is recommended that this patient with emphysema be evaluated for enrollment in a low dose CT lung cancer screening program.
--- NOTE | 2022-11-10 16:13 | XR_ITS ---
PROCEDURE INFORMATION: Exam: XR Chest Exam date and time: 11/10/2022 5:41 PM Age: 67 years old Clinical indication: Other: Chest pain; Additional info: Pain, rue discoloration TECHNIQUE: Imaging protocol: Radiologic exam of the chest. Views: 1 view. COMPARISON: CT ANGIO CHEST 11/10/2022 5:21 PM FINDINGS: Lungs: Poorly defined opacification of right upper lung. [id number] right pleural effusion. Pleural spaces: See Lungs finding. Heart/Mediastinum: Unremarkable. No cardiomegaly. Bones/joints: Unremarkable. Other findings: . IMPRESSION: 1. Right lung opacification. Infectious/inflammatory versus neoplastic primary differential considerations. 2. Right pleural effusion.
[2022-11-10 16:33] LABS: Chloride 98 mmol/L (98-107); Potassium 3.7 mmoL/L (3.5-5.1); Sodium 136 mmol/L (136-145)
[2022-11-10 16:35] LABS: Blood Urea Nitrogen 32 mg/dl (7-17); Creatinine Clearance Estimated 69 mL/min (50-200); Estimated Glomerular Filt Rate 50 ml/min (>60); GFR (African American) 60 ML/MIN (>60)
[2022-11-10 16:36] LABS: Alanine Aminotransferase 22 U/L (12-78); Albumin Level 3.2 g/dl (3.5-5.0); Albumin/Globulin Ratio 1.1 (1.1-1.8); Alkaline Phosphatase 76 U/L (38-126); Anion Gap 15.7 mEq/L (5-15); Aspartate Amino Transferase 21 U/L (14-36); Bilirubin,Total 0.3 mg/dl (0.2-1.3); Calcium 9.3 mg/dl (8.4-10.2); Carbon Dioxide 26 mmol/L (22.0-30.0); Globulin 2.8 g/dL (1.3-3.2); Glucose 172 mg/dl (74-100)
[2022-11-10 16:42] LABS: Basophils # 0.2 K/mm3 (0-0.2); Basophils % 0.5 % (0.1-2.0); Eosinophils # 2.6 K/mm3 (0.0-0.4); Eosinophils % 7.8 % (0.1-12.0); Hemoglobin 13.1 g/dL (12.2-16.2); Lymphocytes % 9.1 % (10-50); Mean Corpuscular HGB Conc 31.3 g/dL (31.8-35.4); Mean Corpuscular Hemoglobin 26.2 pg (27.0-31.2); Mean Corpuscular Volume 83.7 fl (81-99); Mean Platelet Volume 8.9 fl (7.4-10.4); Monocytes # 1.5 K/mm3 (0.1-1.0); Monocytes % 4.5 % (1.7-9.3); Neutrophils # 25.8 K/mm3 (1.8-7.8); Neutrophils % 78.2 % (37.0-80.0); Platelet Count 483 K/mm3 (142-424); Red Blood Count 5.02 M/mm3 (4.20-5.40); Red Cell Distribution Width 14.3 % (11.5-17.5)
--- NOTE | 2022-11-10 16:44 | PC.NURSE ---
respiratory notified of green top collected for vbg
[2022-11-10 16:45] LABS: NT Pro Brain Natriuretic Pep. 370 pg/mL (0-125)
[2022-11-10 16:46] LABS: MANUAL DIFFERENTIAL MANUAL DIFFERENTIAL (MANUAL DIFF)
--- NOTE | 2022-11-10 16:47 | PC.NURSE ---
respiratory collected green top
[2022-11-10 16:49] LABS: Troponin I < 0.01 ng/ml (0.00-0.034)
[2022-11-10 16:52] LABS: VBG Base Excess 0.2 mmol/L (-2.4-2.3); VBG HCO3 25.4 mmol/L (23-30); VBG Oxygen Saturation 88.2 % (50-70); VBG PCO2 44.9 mmol/L (35-51); VBG PH 7.37 mmol/L (7.31-7.41); VBG PO2 56.6 mmol/L (28-40); VBG Total CO2 26.8 mmol/L (23-27)
--- NOTE | 2022-11-10 17:27 | PC.NURSE ---
pt is not in room at the moment still at ct
--- NOTE | 2022-11-10 18:17 | HMH.EDGENADL ---
Discharge Plan Disposition Patient Disposition: Left Against Medical Advice Condition: Good Prescriptions Prescriptions: New doxycycline hyclate 100 mg capsule 100 mg PO BID 10 Days Qty: 20 0RF No Action metoprolol succinate 100 mg tablet extended release 24 hr 100 mg PO DAILY lisinopril-hydrochlorothiazide 10-12.5 mg tablet 1 tab PO DAILY Label Comments: TAKE 1 TABLET BY MOUTH ONCE DAILY aspirin 81 mg tablet,chewable 81 mg PO DAILY omeprazole 40 mg capsule,delayed release(DR/EC) 40 mg PO DAILY Label Comments: TAKE 1 CAPSULE BY MOUTH ONCE DAILY FOR 30 DAYS trazodone 50 mg tablet 50 mg PO QHS PRN (Reason: sleep) Qty: 30 0RF meclizine 25 mg tablet 25 mg PO DAILY PRN (Reason: Dizziness) topiramate 100 mg tablet 100 mg PO DAILY albuterol sulfate 90 MCG HFA aerosol inhaler 1 % IH DAILYP PRN (Reason: asthma) ubrogepant 50 MG tablet 50 mg PO DIRECTED PRN (Reason: migraines) Rx Instructions: Take 1 tablet @ onset of headache. May repeat after two hours. Max 2 tabs/ 24 hrs, 4 tabs/week. famotidine 20 MG tablet 20 mg PO DAILY fluticasone propion-salmeterol 12 GM HFA aerosol inhaler 12 gm IH BID prednisone 20 MG tablet 20 mg PO BID Qty: 10 0RF levofloxacin 500 MG tablet 500 mg PO DAILY Qty: 7 0RF benzonatate 100 MG capsule 100 mg PO TID Qty: 21 0RF atorvastatin 40 MG tablet 40 mg PO DAILY oxybutynin chloride 5 MG tablet extended release 24hr 5 mg PO TID Referrals Follow up/Referrals: Moustapha Hendrix MD [Primary Care Provider] - See instructions Activity Restrictions/Add. Instructions Additional Instructions/Restrictions: You were evaluated in the emergency department today. At this time, we highly recommend admission for further evaluation and management. Please return should you wish to be admitted. If you do not return, please follow-up with your primary care provider as soon as possible. We are providing you with home oxygen. Please continue using your inhalers at home. I am also providing you with antibiotics to treat presumed COPD exacerbation. Clinical Impressions Clinical Impression: Lung mass, Acute hypoxemic respiratory failure, Acute exacerbation of chronic obstructive pulmonary disease Discharge ED Provider: Maggi Drew General Adult HPI General Chief complaint: Shortness of Breath/Dyspnea Stated complaint: SOA Time Seen by Provider: 11/10/22 16:09 Mode of Arrival: Ambulatory Source of Information: Patient Limitations: No Limitations Description of Symptoms (Recalled from ER Triage Doc. by RN): pt to ed c/o shortness of air. pt states she has been having a hard time catching her breath. pt denies cp but reports chest pressure. pt denies home 02 usage. History of Present Illness HPI narrative: This patient is a 67-year-old female with a history of TAMI, COPD, hypertension, hyperlipidemia, and tobacco dependence presented to the emergency department for evaluation with concern for chest pain and difficulty breathing. Patient states that she is not generally on oxygen at home. She states that she has been feeling bad for a few days, but it acutely worsened today. Her chest pain is substernal and radiates to her back. She also complains that it felt like her right arm went numb and had discoloration today. Given this, she presented for further evaluation and management. No known history of lung cancer. She is currently on oral steroids. Related Data Home Medications Medication Instructions Recorded Confirmed atorvastatin 40 mg tablet 40 mg PO DAILY Cholesterol 04/27/18 02/22/22 oxybutynin chloride 5 mg 5 mg PO TID bladder 04/27/18 02/22/22 tablet,extended release 24 hr albuterol sulfate 90 mcg/actuation 1 % IH DAILYP PRN asthma 06/17/18 02/22/22 aerosol inhaler aspirin 81 mg chewable tablet 81 mg PO DAILY heart health 08/07/19 02/22/22 lisinopril 10 1 tab PO LAMAR
[2022-11-10 19:23] LABS: Eosinophils % 6 % (0-3); Hypochromasia 1+; Lymphocytes % 15 % (10-50); Monocytes % 6 % (2-9); Neutrophils % 73 % (42-76); Platelet Estimate Slight Increase; Total Cells Counted 100
== END 2022-11-10 20:54 | disposition left against medical advice (07) ==
PROVIDERS: Emergency Provider Emergency Medicine; PCP Internal Medicine Adolescent Medicine
DX: J96.01 Acute respiratory failure with hypoxia (principal); J44.1 Chronic obstructive pulmonary disease with (acute) exacerbation
CPT/HCPCS: 71045; 71275; 80053; 82803; 83880; 84484; 85007; 85025; 93005; 96374; 99285; Q9967